=== PATIENT | male | born 1975 | race African-American/Black ===

== ENCOUNTER 2024-06-02 05:18 | Day surgery (SDC) | payer BC, OTHER ==
[2024-04-16 09:11] VITALS: BMI 34.3
[2024-06-02 11:37] VITALS: TEMP 98
[2024-06-02 12:24] VITALS: BP 146/87; PULSE 65; RESP 18
== END 2024-06-02 12:09 | disposition home or self-care (01) ==
LOC: JASU-ENDO 05:18
PROVIDERS: ATTEND Internal Medicine Gastroenterology
PROC: 0DJD8ZZ Inspection of Lower Intestinal Tract, Via Natural or Artificial Opening Endoscopic (ICD-10-PCS; principal; 2024-06-02 11:00)
DX: Z12.11 Encounter for screening for malignant neoplasm of colon (principal)
CPT/HCPCS: 82962